=== PATIENT | female | born 1945 | race Caucasian/White ===

== ENCOUNTER 2018-02-11 09:32 | Day surgery (SDC) | payer MEDICARE ==
[~2018-02-11 09:32] MED LIST: Acetaminophen TAB* 325 MG PO PRN; Buffered Lidocaine 0.9% SYRIN* 5 ML/SYR SYRINGE INTRADERM ONE
[2018-02-11] MEDS ORDERED: Tropicamide 1% OPTH.SOL* BTL ONE (11:08)
[2018-02-11] MEDS ORDERED: Lidocaine 1%* 5 ML VIAL ONE (11:08)
[2018-02-11] MEDS ORDERED: Neomycin/Polymy/Dex OPHTH.OIN* 3.5 GM ONE (11:08)
[2018-02-11] MEDS ORDERED: Cyclopentolate 1% OPTH.SOL* 2 ML BTL ONE (11:08)
[2018-02-11] MEDS ORDERED: Phenylephrine 2.5% OPTH.SOL* 2 ML BTL ONE (11:08)
[2018-02-11] MEDS ORDERED: Ketorolac 0.5% OPHTH (NF) 0.5 % 5 ML BTL ONE (11:08)
[2018-02-11] MEDS ORDERED: Tetracaine 0.5% OPTH.SOL 4 ML* 1 DROP BTL ONE (11:08)
[2018-02-11] MEDS ORDERED: fentaNYL* 50 MCG/ML 2 ML VIAL (100 MCG VIAL) ONE (11:22)
[2018-02-11] MEDS ORDERED: Midazolam* 1 MG/ML 2 ML VIAL (2 MG) ONE (11:22)
[2018-02-11 13:36] VITALS: BP 119/55
--- NOTE | 2018-02-12 02:25 | OP ---
DATE OF OPERATION: 02/11/18 - [facility] DATE OF : 41 SURGEON: Herbert Aguilar MD SHINGLES ROOFER HELPER: None. ANESTHESIA: Topical with intravenous sedation. PRE-OP DIAGNOSIS: Cataract with the stigmatism, left eye. POST-OP DIAGNOSIS: Cataract with the stigmatism, left eye. OPERATIVE PROCEDURE: Phacoemulsification and cataract extraction with posterior chamber toric intraocular lens implant, left eye. COMPLICATIONS: None. ESTIMATED BLOOD LOSS: None. DESCRIPTION OF PROCEDURE: The patient was seen preoperatively in the holding area, where she was placed in an upright position. A lena was then made at the 6 o'clock position at the limbus of the left eye. The patient was subsequently brought to the operating room and received intravenous sedation. A drop of tetracaine was placed in her left eye. A speculum was placed in the left eye after the patient was prepped and draped in the usual sterile fashion for ophthalmic surgery. A paracentesis was then created at the 4 o'clock position of the left eye. Approximately 0.1 cc of 1% preservative-free lidocaine was injected into the anterior chamber followed by DisCoVisc. The eye was digitally stabilized where a 2.75 mm keratome was used to create a triplanar clear corneal incision at the 3 o'clock position. A continuous curvilinear capsulorrhexis was created with cystotome and Utrata forceps. BSS on a cannula was used to hydrodissect the lens from the capsule. Phacoemulsification was performed in a divide and conquer technique to create four fragments, which were removed. Residual cortical material was removed with irrigation and aspiration. Healon was used to inflate the capsular bag. A Wilkes marker was used to lena the 100-degree axis. An SN6AT5 26.0 diopter lens was folded and inserted into the capsular bag. Sinskey hook was used to dial lens to appropriate axial alignment. The Sinskey hook remained in the eye through the paracentesis while irrigation and aspiration was performed to remove viscoelastic from the eye. The Sinskey hook was removed. BSS on a cannula was used to hydrate the corneal stroma and seal the wound. At the end of the case, the pupil was round. The lens was centered, stable, and axially aligned. The eye pressure appeared normal. The wound was watertight. The speculum was removed and topical Maxitrol ointment was placed on the surface of the eye. The eye was closed, patched, and shielded and the patient was sent to recovery room in stable condition with postoperative instructions and followup appointment given. [id number]/CPS #: [id number] MTDD
== END 2018-02-11 12:49 | disposition home or self-care (01) ==
LOC: OREAST 09:32
PROVIDERS: ATTEND Ophthalmology
DX: H25.12 Age-related nuclear cataract, left eye (principal); H52.202 Unspecified astigmatism, left eye; I25.119 Atherosclerotic heart disease of native coronary artery with unspecified angina pectoris; Z95.1 Presence of aortocoronary bypass graft; I49.3 Ventricular premature depolarization; Z85.118 Personal history of other malignant neoplasm of bronchus and lung; M19.90 Unspecified osteoarthritis, unspecified site; J30.89 Other allergic rhinitis
CPT/HCPCS: A9270-GY; J2250; J3010; V2787

== ENCOUNTER 2018-02-18 07:28 | Day surgery (SDC) | payer MEDICARE ==
[2018-02-18] MEDS ORDERED: Neomycin/Polymy/Dex OPHTH.OIN* 3.5 GM ONE (07:53)
[2018-02-18] MEDS ORDERED: Ketorolac 0.5% OPHTH (NF) 0.5 % 5 ML BTL ONE (07:53)
[2018-02-18] MEDS ORDERED: Lidocaine 1%* 5 ML VIAL ONE (07:53)
[2018-02-18] MEDS ORDERED: Cyclopentolate 1% OPTH.SOL* 2 ML BTL ONE (07:53)
[2018-02-18] MEDS ORDERED: Tropicamide 1% OPTH.SOL* BTL ONE (07:53)
[2018-02-18] MEDS ORDERED: Tetracaine 0.5% OPTH.SOL 4 ML* 1 DROP BTL ONE (07:53)
[2018-02-18] MEDS ORDERED: Phenylephrine 2.5% OPTH.SOL* 2 ML BTL ONE (07:53)
[2018-02-18] MEDS ORDERED: Midazolam* 1 MG/ML 5 ML VIAL (5 MG) ONE (09:02)
[2018-02-18] MEDS ORDERED: fentaNYL* 50 MCG/ML 2 ML VIAL (100 MCG VIAL) ONE (09:02)
[2018-02-18 10:25] VITALS: BP 100/63
--- NOTE | 2018-02-19 00:49 | OP ---
DATE OF OPERATION: 02/18/18 - [facility] DATE OF : 41 SURGEON: Herbert Aguilar MD GEODUCK DIVER: None. ANESTHESIA: Topical with intravenous sedation. PRE-OP DIAGNOSIS: Cataract with astigmatism, right eye. POST-OP DIAGNOSIS: Cataract with astigmatism, right eye. OPERATIVE PROCEDURE: Phacoemulsification, cataract extraction with posterior chamber Toric intraocular lens implant, right eye. COMPLICATIONS: None. BLOOD LOSS: None. DESCRIPTION OF PROCEDURE: The patient was seen preoperatively in the holding area where she was placed in an upright position. A lena was made at the 6 o' clock position of the limbus of the right eye with a marking pen. The patient was subsequently brought into the operating room and received a small amount of intravenous sedation. A drop of Tetracaine was placed in her right eye. She was prepped and draped in the usual sterile fashion for ophthalmic surgery and attention was directed to the right eye where a speculum was placed. A paracentesis was created at the 11 o'clock position and 0.1 cc of 1% preservative free lidocaine was injected into the anterior chamber followed by DisCoVisc. The eye was digitally stabilized where a 2.75 mm keratome was used to create a triplanar clear corneal incision at the 9 o'clock position. A continuous curvilinear capsulorrhexis was created with a cystotome and Utrata forceps. BSS on a cannula was used to hydrodissect the lens from the capsule. Phacoemulsification was performed in a [id number]-[id number] technique to create 4 fragments which were removed. Residual cortical material was removed with irrigation and aspiration. Healon was used to inflate the capsular bag. A Wilkes marker was used to lena the 83 degree axis in the limbus. An SN6AT3 of 24 diopter lens was folded and inserted into the capsular bag. The lens was dialed to the appropriate axial alignment with the Sinskey hook. The Sinskey hook remained in the eye through the paracentesis to stabilize the lens while irrigation and aspiration were performed to remove viscoelastic from the eye. BSS on a cannula was used to hydrate the corneal stroma and seal the wound. At the end of the case, the pupil was round and the lens was centered. The lens was stable at its appropriate axis. The eye pressure appeared normal and the wound was watertight. The speculum was removed and topical Maxitrol ointment was placed on the surface of the eye. The eye was closed, patched, and shielded , and the patient was sent to recovery room in stable condition with postop instructions and follow- up appointment given. [id number] #: [id number] MTDD
== END 2018-02-18 10:27 | disposition home or self-care (01) ==
LOC: OREAST 07:28
PROVIDERS: ATTEND Ophthalmology
DX: H25.11 Age-related nuclear cataract, right eye (principal); H52.201 Unspecified astigmatism, right eye; I25.10 Atherosclerotic heart disease of native coronary artery without angina pectoris; Z95.1 Presence of aortocoronary bypass graft; Z85.118 Personal history of other malignant neoplasm of bronchus and lung; M19.90 Unspecified osteoarthritis, unspecified site; M48.00 Spinal stenosis, site unspecified
CPT/HCPCS: A9270-GY; J2250; J3010; V2787

== ENCOUNTER 2018-11-17 18:20 | Emergency (ER) | payer MEDICARE ==
--- OUTSIDE RECORDS SUMMARY | 2018-11-17 18:26 | XMS REPORT | Continuity of Care Document ---
:1945 External Reference #:[id number] Author Name Jenna Jayde Care Team Providers Name Role Phone Igor Bear MD Primary Care Physician Unavailable Payers Date Identification Numbers Payment Provider Subscriber Effective: 2016 Policy Number: [id number] [employer] Kanwal Hernandez PayID: [id number] [address] [place] [address] Effective: 2013 Policy Number: [id number] Medicare Kanwal Hernandez Expires: 2016 PayID: [id number] [address] [place] [address] Expires: 2016 Policy Number: [id number] [employer] Number: [id number] [address] PayID: [id number] [place] [address] Advance Directives Description No Information Available Problems Date Description Provider Status Onset: 11/27/2017 Localized, primary osteoarthritis Sonya Menard M.D. Active Family History Date Family Member(s) Observation Comments General Heart Disease General Cancer Father due to Cancer () Mother due to Heart Disease () Siblings 1 Siblings 1 Social History Type Date Description Comments Sex Unknown Marital Status Lives With Spouse Occupation Retired ETOH Use Denies alcohol use Tobacco Use Start: Unknown End: Patient is a former Unknown smoker Recreational Drug Use Denies Drug Use Tobacco Use Start: Unknown End: Patient is a former quit 2014 2 ppd Unknown smoker for most of her adult years. Smoking Status Reviewed: 10/24/18 Patient is a former quit 2014 2 ppd smoker for most of her adult years. Exercise Type/Frequency Exercises sporadically Allergies, Adverse Reactions, Alerts Date Description Reaction Status Severity Comments 08/04/2013 Darvon Active 08/04/2013 Tape Adhesive Active 08/18/2014 Vicryl Sutures Active Medications Medication Date Status Form Strength Qnty SIG Indications Ordering Provider Cymbalta 0000/ Active Tablet 60mg 1 tab by Unknown 0000 mouth daily Aspir-81 / Active Tablets DR 81mg 30tab 1 by mouth Unknown 0000 s every day Calcium Citrate / Active Tablet 500mg 1 tab by Unknown + 0000 mouth daily Acidophilus / Active 1 po qd Unknown 0000 Echinacea / Active 1 po qd prn Unknown 0000 Melatonin / Active Tablet 1mg 1 tab by Unknown 0000 mouth at hs as needed Gilotrif / Active 40mg 1 po qd Unknown 0000 Methocarbamol / Active Tablet 750mg 1 tab by Unknown 0000 mouth daily Anusol-HC / Active Cream 2.5% topical Unknown 0000 twice a day as needed for hemorrhoids Biotin / Active Capsules 5000mcg 1 by mouth Unknown 0000 daily Clindamycin / Active Gel apply prn to Unknown Phosphate 0000 affected areas. Triamcinolone / Active apply to Unknown Acetonide 0000 affected areas prn Cranberry / Active Tablets 500mg 1 by mouth Unknown 0000 every day Vitamin B12 / Active Tablets 500mcg 1 by mouth Unknown 0000 every day Vit D 3 / Active Chewtabs 1000Unit 1 po qd Unknown 0000 Tylenol / Active Tablets 325mg 2 tabs by Unknown 0000 mouth every 4 hours as needed Eelecampagne 08/18/ Hx Evelin Soto-Juvenal 04/21/ Bettye smith 2018 Naprosyn 02/12/ Hx Tablets 375mg 60tab 1 po bid prn [place] 2012 Christina Bush 08/17/ Bettye 2015 Co Q 10 / Hx Unknown 2017 Evening / Hx Unknown [place] Oil 2017 [place] Zhou / Hx Unknown 2017 Magnesium // Hx Unknown Citrate 2017 Multi / Hx Unknown Vitamin/Mineral 0000 - s 2017 Potassium // Hx Unknown 2017 Selenium ER / Hx Unknown 2017 Turmeric / Hx Unknown 2017 Vitamin B 12 / Hx Unknown 2017 Vitamin C / Hx Unknown 2017 Vitamin D3 / Hx Capsule 1000Units 2 caps by Unknown 0000 - mouth daily 2017 Vitamin E / Hx Unknown Complex 2017 Respiration / Hx Unknown Support And 0000 - Defense 2017 Medications Administered in Office Medication Date Status Form Strength Qnty SIG Indications Ordering Provider Hyaluron Or Administered Injection Sonya Derivative,Ort Bettye West,For Intra-Articula r Inj Per Dose Depomedrol Administered Injection Sonya 40MG Johnny Menard M.D. Hyaluron Or Administered Injection Sonya Derivative,Ort Bettye West,For Intra-Articula r Inj Per Dose Hyaluron Or Administered Injection Sonya Derivative,Bettye Sanchez,For Intra-Articula r Inj Per Dose Hyaluron Or Administered Injection Sonya Derivative,Bettye Latif,For Intra-Articula r Inj Per Dose Hyaluron Or Administered Injection Sonya Derivative,Bettye Latif,For Intra-Articula r Inj Per Dose Hyaluron Or Administered Injection Sonya Derivative,Bettye Latif,For Intra-Articula r Inj Per Dose Depomedrol Administered Injection Sonya 40MG Javier Menard M.D. Immunizations Description No Information Available Vital Signs Date Vital Result Comment 10/24/2018 1:33pm Height 62 inches 5'2" Weight 145.00 lb no shoes Heart Rate 88 /min BP Systolic Sitting 120 mmHg sitting ule BP Diastolic Sitting 72 mmHg sitting ule BMI (Body Mass Index) 26.5 kg/m2 Ejection Fraction 55-60% echo 05/12/18 09/08/2018 2:42pm Height 62 inches 5'2" Weight 145.00 lb Heart Rate 70 /min BP Systolic Sitting 122 mmHg BP Diastolic Sitting 72 mmHg Pain Level 4 BMI (Body Mass Index) 26.5 kg/m2 09/01/2018 2:38pm Height 62 inches 5'2" Heart Rate 60 /min BP Systolic 110 mmHg BP Diastolic 64 mmHg Body Temperature 98.9 F Pain Level 0 08/25/2018 2:37pm Height 62 inches 5'2" Heart Rate 63 /min BP Systolic 128 mmHg BP Diastolic 86 mmHg Respiratory Rate 18 /min Body Temperature 97.8 F Pain Level 5 07/14/2018 2:30pm Height 62 inches 5'2" Weight 148.00 lb BP Systolic 108 mmHg BP Diastolic 60 mmHg Body Temperature 97.6 F BMI (Body Mass Index) 27.1 kg/m2 04/22/2018 9:36am Height 62 inches 5'2" Weight 146.00 lb reported Heart Rate 58 /min BP Systolic 142 mmHg left arm BP Diastolic 80 mmHg left arm BMI (Body Mass Index) 26.7 kg/m2 Ejection Fraction 55-60% 08/15/2016 Echocardiogram 02/03/2018 2:26pm Height 62 inches 5'2" Weight 144.00 lb Heart Rate 79 /min BP Systolic 113 mmHg BP Diastolic 67 mmHg Body Temperature 97.7 F BMI (Body Mass Index) 26.3 kg/m2 01/27/2018 2:25pm Height 62 inches 5'2" Weight 144.00 lb BP Systolic 122 mmHg BP Diastolic 76 mmHg Body Temperature 98.2 F Pain Level 4 BMI (Body Mass Index) 26.3 kg/m2 01/20/2018 2:29pm Height 62 inches 5'2" Weight 145.00 lb BP Systolic 120 mmHg BP Diastolic 76 mmHg Body Temperature 98.0 F Pain Level 6 BMI (Body Mass Index) 26.5 kg/m2 12/11/2017 10:57am Height 62 inches 5'2" Weight 147.00 lb BP Systolic 110 mmHg BP Diastolic 60 mmHg Body Temperature 98.2 F Pain Level 6 BMI (Body Mass Index) 26.9 kg/m2 11/27/2017 11:19am Height 62.5 inches 5'2.50" Weight 148.00 lb Heart Rate 61 /min BP Systolic 124 mmHg BP Diastolic 78 mmHg Respiratory Rate 18 /min Body Temperature 98.1 F Pain Level 9 BMI (Body Mass Index) 26.6 kg/m2 08/18/2014 9:48am Height 62.5 inches 5'2.50" Weight 136.00 lb Heart Rate 72 /min BP Systolic 108 mmHg BP Diastolic 69 mmHg BMI (Body Mass Index) 24.5 kg/m2 Results Description No Information Available Procedures Date Code Description Status 10/24/2018 46118 EKG Tracing & Interpretation Completed 09/08/201892453 Inject/Drain Joint/Bursa Major W/O US Completed 09/01/2018 47427 Inject/Drain Joint/Bursa Major W/O US Completed 08/25/2018 53768 Inject/Drain Joint/Bursa Major W/O US Completed 05/12/2018 45396 ECHO Transthoracic, Real-Time 2D With Doppler And Color Completed Flow 05/12/2018 37272 ECHO Transthoracic, Real-Time 2D With Doppler And Color Completed Flow 04/22/2018 28734 EKG Tracing & Interpretation Completed 04/16/2018 47564 Holter Monitor Review (24 hr)dr review & interp only Completed 04/15/2018 74808 ECG Monitor/Recording W/Visual Superimposition Scanning Completed 02/03/201868764 Inject/Drain Joint/Bursa Major W/O US Completed 01/27/2018 39279 Inject/Drain Joint/Bursa Major W/O US Completed 01/20/2018 21858 Inject/Drain Joint/Bursa Major W/O US Completed 11/27/2017 62032 Inject/Drain Joint/Bursa Major W/O US Completed 08/15/2016 15959 ECHO Transthorasic Realtime 2D W Doppler & Color Flow Hosp Completed 02/12/2013 79784 Xray Knee 3 Views Completed 02/12/2013 88266 Rad Exam; Knee, Ap&L Completed Encounters Type Date Location Provider Dx Diagnosis Office Visit 07/14/2018 Orthopedic Sonya Menard, M25.562 Pain in left knee 2:15p [facility] M25.462 Effusion, left knee M17.12 Unilateral primary osteoarthritis, left knee Office Visit 04/22/2018 Selena Choe I44.1 Atrioventricular 9:40a Cardiology Bettye Amador block, second degree 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 knee M21.062 Valgus deformity, not elsewhere classified, left knee M25.561 Pain in right knee M25.562 Pain in left knee M25.461 Effusion, right knee M25.462 Effusion, left knee Office Visit 11/27/2017 11:00a Orthopedic Sonya M17.0 Bilateral primary [facility] Bettye Menard osteoarthritis of C[place]. knee M25.561 Pain in right knee M25.562 Pain in left knee M25.461 Effusion, right knee M25.462 Effusion, left knee Office 08/18/2014 Orthopedic Evelin 715.34 Osteoarthrosis Visit 9:30a [facility] Bettye Guzman Localzd Not Spec C.M.A. Prime Or 2Ndy Hand 727.03 Trigger Finger Acquired 354.0 Carpal Tunnel Syndrome 354.2 Lesion Ulnar Nerve 305.1 Tobacco Use Disorder Office Visit 05/27/2013 1:45p Orthopedic [place] 726.61 Bursitis [facility] Bettye Tendinijorgito Pacheco CBassamMEvelia Traylor Office Visit 02/12/2013 1:00p Orthopedic [place] 726.61 Bursitis [facility] Bettye Tendinitis Pes CBassamMBassamABassam Anschristine Plan of Treatment Future Appointment(s):12/11/2018 2:00 pm - Safia Tariq MD at [facility]12/24/2018 2:00 pm - Igor Ferraro M.D. at [facility]10/24/2018 - Mars Amador M.D.I44.1 Atrioventricular block, second degreeFollow up:ov 10 mI25.10 Atherosclerotic heart disease of [place] coronary artery withI49.1 Atrial premature depolarizationRecommendations:consider Magnesium taurate 125-250 mg cauukF02.00 Pure hypercholesterolemia, unspecifiedRecommendations:consider Zetia or a PCSK9 inhibitor (eg. Repatha )
[2018-11-17 18:35] VITALS: BP 110/70
--- NOTE | 2018-11-17 18:50 | UC ---
Hip/Pelvis Pain - HPI Summary HPI Summary: Patient presents to urgent care for evaluation of her left hip. Patient states Saturday night and morning she got up to use the restroom. Patient states she misstepped a short step and fell landing on her left buttock. Patient states she did not get out of bed or Saturday. Patient states she was able to get up on Saturday ankle dinner. Patient also cup and symmetrical dinner. Patient's currently taking oxycodone twice a day for probably arthritis. Patient also taking Tylenol 2-3 times a day. Patient states she has some ongoing discomfort in her left upper buttock area with walking and concerned that maybe she broke her hip. Patient unable to get into her primary today. Patient states she is also followed by but did not call her today. Patient is not on any anticoagulation. Patient has of ecchymosis left lateral possible leg. Patient denies any paresthesias. No muscle weakness. No change to bowel or bladder. No hematuria. Patient medications reviewed this visit. - History Of Current Complaint Chief Complaint: UCLowerExtremity Stated Complaint: HIP COMPLAINT Time Seen by Provider: 11/17/18 18:46 Hx Obtained From: Patient ?: No Pain Intensity: 9 - Allergies/Home Medications Allergies/Adverse Reactions: Allergies Allergy/AdvReac Type Severity Reaction Status Date / Time propoxyphene Allergy Severe Nausea And Verified 11/17/18 18:35 Vomiting latex Allergy Intermediate Rash Verified 11/17/18 18:35 VICRYL SUTURES Allergy Intermediate DIDN'T Uncoded 11/17/18 18:35 DISSOLVE PMH/Surg Hx/FS Hx/Imm Hx Previously Healthy: Yes - poly arthritis, scoliosis - Surgical History Surgical History: Yes Surgery Procedure, Year, and Place: CABG- 1980. hysterectomy 1995, R knee meniscus repair 2010. CATARACTS - Family History Known Family History: Positive: Non-Contributory - Social History Occupation: Retired Lives: With Family Alcohol Use: None Substance Use Type: None Smoking Status (MU): Former Smoker Amount Used/How Often: SMOKED OFF AND ON 30 TREVOR YEARS When Did the Patient Quit Smoking/Using Tobacco: 2014 Review of Systems All Other Systems Reviewed And Are Negative: Yes Constitutional: Positive: Negative Skin: Positive: Bruising Eyes: Positive: Negative ENT: Positive: Negative Musculoskeletal: Positive: Other: - left buttock, hip pain Physical Exam - Summary Physical Exam Summary: Vital Signs Reviewed: Yes A+Ox3, no distress, ambulatory with cane - baseline per pt Eyes: Conjunctiva Clear ENT: Hearing grossly normal Neck: Positive: Supple Respiratory: Positive: No respiratory distress, No accessory muscle use Cardiovascular: 2+ PT, femoral Musculoskeletal Exam: No pain spinous process c/t/l/s Pt with pain left superior margin left gluteus, + SLE + internal and external + flex/ext knee, ankle Neurological: Positive: Alert, + gross sensation trhoughout LE 2+ patellar without clonus Psychological: Positive: Normal Response To Family Skin: Positive: no rash, + large 5x5cm progressing ecchymosis left lateral prox femur. + mild TTP "skin" per pt Triage Information Reviewed: Yes Vital Signs: Initial Vital Signs Temp 97.7 F 11/17/18 18:32 Pulse 62 11/17/18 18:32 Resp 18 11/17/18 18:32 BP 110/70 11/17/18 18:32 Pulse Ox 96 11/17/18 18:32 Diagnostics - Radiology No standard instances Radiology Interpretation Completed By: ED Physician - no fracture Re-Evaluation - Re-Evaluation First Eval Comment: reivewed imaging with pt. arthritis, no fx. Pt aware wet read. recommend heat, stretch. f.u with pcp. continue with meds for pain. strict return precautions. ot aware prelim radiology Hip Injury Course/Dx - Course Course Of Treatment: Patient presents to urgent care for evaluation of her left hip. Patient states she had a mechanical fall Saturday and morning. Patient with ongoing pain in her left hip and upper buttock on the left. Patient without paresthesias. Patient takes chronic pain medication as continue to take this. Patient states she's concerned she may have broken her hip and wanted x-ray. Patient without any paresthesias. Distal CSM intact. Patient does have sizable ecchymosis on the left lateral proximal femur. No crepitus. Patient with good range of motion of the hip. Suspect this is mostly soft tissue given point tenderness is over the gluteus ai however we will check imaging. Patient aware will be pulmonary retype formally to follow. Patient isn't physical therapy for her Poly-arthritis. Recommend patient go to physical therapy on Saturday as scheduled. Recommended heat and stretch. Continue with pain medication follow primary care provider patient comfortable and agreement with plan. - Differential Dx/Diagnosis Provider Diagnosis: Contusion, hip Discharge - Sign-Out/Discharge Documenting (check all that apply): Patient Departure All imaging exams completed and their final reports reviewed: No - Discharge Plan Condition: Stable Disposition: HOME Patient Education Materials: Hip Pain (ED), Hematoma (ED), Hip Contusion (ED) Referrals: Igor Bear MD [Primary Care Provider] - Additional Instructions: - Continue to use cane for balance with walking -continue to take your medications as previously prescribed for pain - Apply heat to your injured area - once warm, slow gentle stretching exercises - the bruising may continue to extend toward your knee - this is normal - Follow up with your primary care provider this week - If your pain is uncontrolled, you develop weakness, new numbness or ANY Other concerns it is recommended you go to the emergency department for further evaluation As discussed, your radiograph was reviewed by the provider that treated you tonight. It will be read by a radiologist tomorrow morning. If there is a finding other than that discussed with you today, you will receive a call from a care provider. - Billing Disposition and Condition Condition: STABLE Disposition: Home
--- NOTE | 2018-11-19 15:54 | UC ---
- Progress Note Progress Note: Radiology report reviewed. No evidence for fracture. No change in management. Course/Dx - Diagnoses Provider Diagnoses: Contusion, hip Discharge - Sign-Out/Discharge Documenting (check all that apply): Post-Discharge Follow Up All imaging exams completed and their final reports reviewed: Yes - Discharge Plan Condition: Stable Disposition: HOME Patient Education Materials: Hip Pain (ED), Hematoma (ED), Hip Contusion (ED) Referrals: Igor Bear MD [Primary Care Provider] - Additional Instructions: - Continue to use cane for balance with walking -continue to take your medications as previously prescribed for pain - Apply heat to your injured area - once warm, slow gentle stretching exercises - the bruising may continue to extend toward your knee - this is normal - Follow up with your primary care provider this week - If your pain is uncontrolled, you develop weakness, new numbness or ANY Other concerns it is recommended you go to the emergency department for further evaluation As discussed, your radiograph was reviewed by the provider that treated you tonight. It will be read by a radiologist tomorrow morning. If there is a finding other than that discussed with you today, you will receive a call from a care provider. - Billing Disposition and Condition Condition: STABLE Disposition: Home
== END 2018-11-17 19:55 | disposition home or self-care (01) ==
LOC: UCEAST 18:20
DX: S70.02XA Contusion of left hip, initial encounter (principal); W19.XXXA Unspecified fall, initial encounter; Y92.009 Unspecified place in unspecified non-institutional (private) residence as the place of occurrence of the external cause; M13.0 Polyarthritis, unspecified; M41.9 Scoliosis, unspecified; Z95.1 Presence of aortocoronary bypass graft; Z91.040 Latex allergy status; Z88.5 Allergy status to narcotic agent; Z91.048 Other nonmedicinal substance allergy status; Z87.891 Personal history of nicotine dependence
CPT/HCPCS: 99211; G0463

== ENCOUNTER 2022-07-23 10:05 | Inpatient (IN) ==
[2022-07-23] MEDS ORDERED: NS 0.9% 1000 ml BAG 1,000 ML IV ONE (10:40)
[2022-07-23 12:01] LABS: ABS Lymphocytes 0.2 10^3/ul (1.0-4.8); ABS Monocytes 0.5 10^3/ul (0-0.8); ABS Neutrophils 4.1 10^3/ul (1.5-7.7); Hematocrit 38 % (35-47); Hemoglobin 12.7 g/dL (12.0-16.0); Lymphocyte % 3.1 %; Mean Corpuscular HGB Conc 33 g/dL (31-36); Mean Corpuscular Hemoglobin 31 pg (27-31); Mean Corpuscular Volume 92 fL (80-97); Mean Platelet Volume 7.2 fL (7.4-10.4); Nucleated Red Blood Cells % 0.1; Platelet Count 132 10^3/uL (150-450); Red Cell Distribution Width 14 % (10-15); White Blood Count 4.8 10^3/uL (3.5-10.8)
[2022-07-23 12:20] LABS: High Sens Troponin Baseline 149 pg/mL (<15)
[2022-07-23] MEDS ORDERED: Haloperidol 5 mg/ml SDV IV/IM 5 MG/ML AMP ONE (12:30)
[2022-07-23] MEDS ORDERED: Haloperidol 5 mg/ml SDV IV/IM 5 MG/ML AMP IV SLOW PU ONE (12:42)
[2022-07-23 12:51] LABS: ALT 13 U/L (7-52); AST 23 U/L (13-39); Albumin 4.2 g/dL (3.2-5.2); Albumin/Globulin Ratio 2.2 (1-3); Alcohol, S < 13 mg/dL (<13); Alkaline Phosphatase 60 U/L (35-149); Anion Gap 8 mmol/L (2-11); Blood Urea Nitrogen 15 mg/dL (6-24); CO2 Carbon Dioxide 23 mmol/L (22-32); Chloride 95 mmol/L (101-111); Globulin 1.9 g/dL (2-4); Glucose 97 mg/dL (70-100); Magnesium 1.7 mg/dL (1.9-2.7); Sodium 126 mmol/L (135-145); Total Protein 6.1 g/dL (6.4-8.9); eGFR CKD-EPI 95.9 (>60)
[2022-07-23 13:05] LABS: TSH Ultra Thyroid Stim Horm 0.99 mcIU/mL (0.34-5.60)
[2022-07-23 13:32] LABS: High Sensitivity Troponin 1 Hr 157 pg/mL (<15)
[2022-07-23] MEDS ORDERED: LORazepam 2 mg VIAL 1 ml IV PUSH ONE (14:04)
[2022-07-23] MEDS ORDERED: Lorazepam PYXIS KEY PRN (14:04)
[2022-07-23] MEDS ORDERED: Magnesium Sulfate IV 3 GM in NS 0.9% 100 ml BAG 100 ML IVPB ONE (14:35)
[2022-07-23 16:46] LABS: Anion Gap 5 mmol/L (2-11); Blood Urea Nitrogen 13 mg/dL (6-24); CO2 Carbon Dioxide 23 mmol/L (22-32); Calcium 8.2 mg/dL (8.6-10.3); Chloride 96 mmol/L (101-111); Glucose 90 mg/dL (70-100); Sodium 124 mmol/L (135-145); eGFR CKD-EPI 97.4 (>60)
[2022-07-23 17:46] LABS: Urine Appearance Clear; Urine Bilirubin Negative (Negative); Urine Color Yellow; Urine Glucose Negative (Negative); Urine Ketones 3+ (80mg/dL) (Negative)
[2022-07-23 17:49] LABS: Urine Bacteria Absent (Absent); Urine Red Blood Cell 1+(3-5/hpf) (Absent); Urine White Blood Cell Trace(0-5/hpf) (Absent)
[2022-07-23 17:50] LABS: Urine Blood 1+ (Small) (Negative); Urine Nitrite Negative (Negative); Urine Protein 1+ (30 mg/dL) (Negative); Urine Specific Gravity 1.014 (1.002-1.030); Urine Urobilinogen 0.2 (Negative) (Negative); Urine pH 5.5 (5.0-9.0)
[2022-07-23] MEDS: Enoxaparin 40 MG/0.4 ML SYR SUBCUT SCH (18:04)
[2022-07-23] MEDS ORDERED: Magnesium Hydroxide LIQ 30 ML UDC PO PRN (18:32)
[2022-07-23 20:03] LABS: Osmolality Serum 264 mOsm/kg (275-295)
[2022-07-23 20:03] LABS: Urine Osmo 526 mOsm/kg (150-1150)
[2022-07-23] MEDS ORDERED: oxyCODONE SR 20 mg TAB PO SCH (22:00)
[2022-07-23] MEDS: Senna TAB 8.6 mg TAB PO SCH (23:32)
[2022-07-24] MEDS: Silver Sulfadiazine 1% 20 gm TUBE TOPICAL SCH ×2 (00:41→08:10)
[2022-07-24] MEDS: Senna TAB 8.6 mg TAB PO SCH ×3 (00:42→23:47)
[2022-07-24 04:24] LABS: Blood Urea Nitrogen 13 mg/dL (6-24); CO2 Carbon Dioxide 24 mmol/L (22-32); Calcium 9.2 mg/dL (8.6-10.3); Chloride 90 mmol/L (101-111); Glucose 103 mg/dL (70-100); Sodium 124 mmol/L (135-145); eGFR CKD-EPI 97.4 (>60)
[2022-07-24 04:30] LABS: Anion Gap 10 mmol/L (2-11)
[2022-07-24] MEDS: Aspirin EC 81 mg TAB.EC (enteric coated) PO SCH (08:08)
[2022-07-24] MEDS: oxyCODONE SR 20 mg TAB PO SCH ×2 (08:08→23:46)
[2022-07-24] MEDS: Cholecalciferol (VIT D3) 1,000 unit TAB PO SCH (08:09)
[2022-07-24] MEDS ORDERED: PTO: OSIMERTINIB MESYLATE 80 MG TABLET (NF) PO SCH (09:00)
[2022-07-24] MEDS ORDERED: OSIMERTINIB MESYLATE 80 MG PO SCH (09:00)
[2022-07-24] MEDS: OSIMERTINIB PO SCH (11:56)
[2022-07-24] MEDS ORDERED: guaiFENesin 100 mg/5 ml LIQ unit dose cup PO PRN (15:07)
[2022-07-24] MEDS: Benzocaine/Menthol LOZ PO PRN (15:18)
[2022-07-24] MEDS: Enoxaparin 40 MG/0.4 ML SYR SUBCUT SCH (19:11)
[2022-07-25] MEDS: Silver Sulfadiazine 1% 20 gm TUBE TOPICAL SCH ×3 (03:00→20:06)
[2022-07-25 08:46] LABS: ABS Lymphocytes 0.4 10^3/ul (1.0-4.8); ABS Monocytes 0.5 10^3/ul (0-0.8); Hematocrit 39 % (35-47); Hemoglobin 13.3 g/dL (12.0-16.0); Lymphocyte % 7.8 %; Mean Corpuscular HGB Conc 34 g/dL (31-36); Mean Corpuscular Hemoglobin 31 pg (27-31); Mean Corpuscular Volume 91 fL (80-97); Mean Platelet Volume 7.2 fL (7.4-10.4); Nucleated Red Blood Cells % 0.1; Platelet Count 117 10^3/uL (150-450); Red Blood Count 4.32 10^6 /uL (3.70-4.87); Red Cell Distribution Width 14 % (10-15); White Blood Count 4.9 10^3/uL (3.5-10.8)
[2022-07-25] MEDS: Aspirin EC 81 mg TAB.EC (enteric coated) PO SCH (08:52)
[2022-07-25] MEDS: Cholecalciferol (VIT D3) 1,000 unit TAB PO SCH (08:52)
[2022-07-25] MEDS: OSIMERTINIB PO SCH (08:53)
[2022-07-25] MEDS: oxyCODONE SR 20 mg TAB PO SCH ×2 (08:53→19:59)
[2022-07-25 09:18] LABS: Calcium 8.9 mg/dL (8.6-10.3); Potassium 3.8 mmol/L (3.5-5.0); eGFR CKD-EPI 97.4 (>60)
[2022-07-25] MEDS ORDERED: NS 0.9% 1000 ml BAG 1,000 ML IV SCH (16:00)
[2022-07-25] MEDS: Enoxaparin 40 MG/0.4 ML SYR SUBCUT SCH (16:54)
[2022-07-25] MEDS: Senna TAB 8.6 mg TAB PO SCH (20:00)
[2022-07-26 06:31] LABS: ABS Lymphocytes 0.2 10^3/ul (1.0-4.8); ABS Monocytes 0.5 10^3/ul (0-0.8); ABS Neutrophils 4.9 10^3/ul (1.5-7.7); Hematocrit 39 % (35-47); Hemoglobin 13.3 g/dL (12.0-16.0); Lymphocyte % 3.5 %; Mean Corpuscular HGB Conc 34 g/dL (31-36); Mean Corpuscular Hemoglobin 31 pg (27-31); Mean Corpuscular Volume 92 fL (80-97); Mean Platelet Volume 7.3 fL (7.4-10.4); Nucleated Red Blood Cells % 0.1; Platelet Count 120 10^3/uL (150-450); Red Blood Count 4.28 10^6 /uL (3.70-4.87); Red Cell Distribution Width 14 % (10-15); White Blood Count 5.5 10^3/uL (3.5-10.8)
[2022-07-26 06:54] LABS: Calcium 8.6 mg/dL (8.6-10.3); eGFR CKD-EPI 100.6 (>60)
[2022-07-26 08:07] LABS: Magnesium 1.5 mg/dL (1.9-2.7)
[2022-07-26] MEDS: oxyCODONE SR 20 mg TAB PO SCH ×2 (08:10→21:48)
[2022-07-26] MEDS: Aspirin EC 81 mg TAB.EC (enteric coated) PO SCH (08:10)
[2022-07-26] MEDS: Cholecalciferol (VIT D3) 1,000 unit TAB PO SCH (08:10)
[2022-07-26] MEDS: OSIMERTINIB PO SCH (08:12)
[2022-07-26] MEDS: Silver Sulfadiazine 1% 20 gm TUBE TOPICAL SCH ×2 (08:13→21:50)
[2022-07-26] MEDS: KCL 20 MEQ/100 ML IVPREMIX 20 MEQ/100 ML BAG IV SCH ×2 (08:27→10:53)
[2022-07-26] MEDS ORDERED: Magnesium Sulf 4 GM/100 ML IV 4,000 MG/100 ML BAG IVPB ONE (08:28)
[2022-07-26] MEDS ORDERED: Potassium Chlor 20 meq TAB.ER PO ONE ×2 (11:17→17:00)
[2022-07-26] MEDS: Benzocaine/Menthol LOZ PO PRN (11:43)
[2022-07-26] MEDS: Enoxaparin 40 MG/0.4 ML SYR SUBCUT SCH (16:26)
[2022-07-26] MEDS: Senna TAB 8.6 mg TAB PO SCH (21:47)
[2022-07-27 08:16] LABS: ABS Lymphocytes 0.4 10^3/ul (1.0-4.8); ABS Monocytes 0.4 10^3/ul (0-0.8); ABS Neutrophils 3.6 10^3/ul (1.5-7.7); Hematocrit 36 % (35-47); Hemoglobin 11.9 g/dL (12.0-16.0); Lymphocyte % 8.9 %; Mean Corpuscular HGB Conc 33 g/dL (31-36); Mean Corpuscular Hemoglobin 30 pg (27-31); Mean Corpuscular Volume 91 fL (80-97); Platelet Count 109 10^3/uL (150-450); Red Blood Count 3.95 10^6 /uL (3.70-4.87); Red Cell Distribution Width 15 % (10-15); White Blood Count 4.4 10^3/uL (3.5-10.8)
[2022-07-27 08:31] LABS: C Reactive Protein 136.45 mg/L (<8.01); Potassium 4.1 mmol/L (3.5-5.0); eGFR CKD-EPI 95.9 (>60)
[2022-07-27] MEDS: oxyCODONE SR 20 mg TAB PO SCH ×2 (08:40→20:05)
[2022-07-27] MEDS: Aspirin EC 81 mg TAB.EC (enteric coated) PO SCH (08:41)
[2022-07-27] MEDS: Cholecalciferol (VIT D3) 1,000 unit TAB PO SCH (08:41)
[2022-07-27] MEDS: OSIMERTINIB PO SCH (08:41)
[2022-07-27] MEDS: Silver Sulfadiazine 1% 20 gm TUBE TOPICAL SCH ×2 (08:58→22:31)
[2022-07-27] MEDS ORDERED: NS 0.9% 1000 ml BAG 1,000 ML IV SCH (11:00)
[2022-07-27] MEDS: Enoxaparin 40 MG/0.4 ML SYR SUBCUT SCH (17:12)
[2022-07-27] MEDS: Senna TAB 8.6 mg TAB PO SCH (20:05)
[2022-07-28 07:09] LABS: ABS Lymphocytes 0.5 10^3/ul (1.0-4.8); ABS Monocytes 0.5 10^3/ul (0-0.8); ABS Neutrophils 4.8 10^3/ul (1.5-7.7); Hematocrit 37 % (35-47); Hemoglobin 12.5 g/dL (12.0-16.0); Lymphocyte % 8.1 %; Mean Corpuscular HGB Conc 34 g/dL (31-36); Mean Corpuscular Hemoglobin 31 pg (27-31); Mean Corpuscular Volume 92 fL (80-97); Mean Platelet Volume 7.2 fL (7.4-10.4); Platelet Count 116 10^3/uL (150-450); Red Blood Count 4.02 10^6 /uL (3.70-4.87); Red Cell Distribution Width 14 % (10-15); White Blood Count 5.8 10^3/uL (3.5-10.8)
[2022-07-28 08:50] LABS: eGFR CKD-EPI 103.8 (>60)
[2022-07-28] MEDS: Aspirin EC 81 mg TAB.EC (enteric coated) PO SCH (09:44)
[2022-07-28] MEDS: Cholecalciferol (VIT D3) 1,000 unit TAB PO SCH (09:44)
[2022-07-28] MEDS: oxyCODONE SR 20 mg TAB PO SCH ×2 (09:45→21:21)
[2022-07-28] MEDS: OSIMERTINIB PO SCH (09:45)
[2022-07-28] MEDS: Silver Sulfadiazine 1% 20 gm TUBE TOPICAL SCH ×2 (09:46→21:23)
[2022-07-28] MEDS: Enoxaparin 40 MG/0.4 ML SYR SUBCUT SCH (17:09)
[2022-07-28] MEDS: NS 0.9% 1000 ml BAG 1,000 ML IV SCH (17:10)
[2022-07-28] MEDS ORDERED: oxyCODONE SR 20 mg TAB PO SCH (21:00)
[2022-07-28] MEDS: Senna TAB 8.6 mg TAB PO SCH (21:21)
[2022-07-29] MEDS: NS 0.9% 1000 ml BAG 1,000 ML IV SCH ×2 (03:02→13:11)
[2022-07-29 06:51] LABS: ABS Lymphocytes 0.7 10^3/ul (1.0-4.8); ABS Monocytes 0.7 10^3/ul (0-0.8); ABS Neutrophils 3.8 10^3/ul (1.5-7.7); Hematocrit 36 % (35-47); Hemoglobin 12.3 g/dL (12.0-16.0); Lymphocyte % 13.7 %; Mean Corpuscular HGB Conc 34 g/dL (31-36); Mean Corpuscular Hemoglobin 32 pg (27-31); Mean Corpuscular Volume 92 fL (80-97); Nucleated Red Blood Cells % 0.1; Platelet Count 129 10^3/uL (150-450); Red Blood Count 3.89 10^6 /uL (3.70-4.87); Red Cell Distribution Width 14 % (10-15); White Blood Count 5.3 10^3/uL (3.5-10.8)
[2022-07-29 07:10] LABS: Calcium 8.6 mg/dL (8.6-10.3); Potassium 3.9 mmol/L (3.5-5.0); eGFR CKD-EPI 107.7 (>60)
[2022-07-29] MEDS: OSIMERTINIB PO SCH (10:00)
[2022-07-29] MEDS: Aspirin EC 81 mg TAB.EC (enteric coated) PO SCH (10:00)
[2022-07-29] MEDS: Cholecalciferol (VIT D3) 1,000 unit TAB PO SCH (10:00)
[2022-07-29] MEDS: oxyCODONE SR 20 mg TAB PO SCH ×2 (10:01→20:26)
[2022-07-29] MEDS: Silver Sulfadiazine 1% 20 gm TUBE TOPICAL SCH ×2 (10:03→20:33)
[2022-07-29] MEDS: oxyCODONE SR 15 mg TAB PO SCH (14:28)
[2022-07-29] MEDS: Enoxaparin 40 MG/0.4 ML SYR SUBCUT SCH (17:28)
[2022-07-29] MEDS: Senna TAB 8.6 mg TAB PO SCH (20:25)
[2022-07-30] MEDS: NS 0.9% 1000 ml BAG 1,000 ML IV SCH ×2 (04:32→14:13)
[2022-07-30] MEDS: Cholecalciferol (VIT D3) 1,000 unit TAB PO SCH (09:40)
[2022-07-30] MEDS: Aspirin EC 81 mg TAB.EC (enteric coated) PO SCH (09:40)
[2022-07-30] MEDS: Silver Sulfadiazine 1% 20 gm TUBE TOPICAL SCH ×2 (09:41→20:24)
[2022-07-30] MEDS: oxyCODONE SR 20 mg TAB PO SCH ×2 (09:41→20:19)
[2022-07-30] MEDS: OSIMERTINIB PO SCH (10:56)
[2022-07-30] MEDS: oxyCODONE SR 15 mg TAB PO SCH (14:10)
[2022-07-30] MEDS: Enoxaparin 40 MG/0.4 ML SYR SUBCUT SCH (18:00)
[2022-07-30] MEDS: Senna TAB 8.6 mg TAB PO SCH (20:18)
[2022-07-31] MEDS: NS 0.9% 1000 ml BAG 1,000 ML IV SCH ×3 (00:35→21:55)
[2022-07-31 06:44] LABS: ABS Lymphocytes 0.7 10^3/ul (1.0-4.8); ABS Monocytes 0.7 10^3/ul (0-0.8); ABS Neutrophils 3.4 10^3/ul (1.5-7.7); Eosinophil % 0.7 %; Hematocrit 34 % (35-47); Hemoglobin 11.3 g/dL (12.0-16.0); Lymphocyte % 13.7 %; Mean Corpuscular HGB Conc 34 g/dL (31-36); Mean Corpuscular Hemoglobin 31 pg (27-31); Mean Corpuscular Volume 91 fL (80-97); Mean Platelet Volume 6.9 fL (7.4-10.4); Nucleated Red Blood Cells % 0.1; Platelet Count 181 10^3/uL (150-450); Red Blood Count 3.69 10^6 /uL (3.70-4.87); Red Cell Distribution Width 14 % (10-15); White Blood Count 4.8 10^3/uL (3.5-10.8)
[2022-07-31 07:00] LABS: Calcium 8.4 mg/dL (8.6-10.3); Magnesium 1.5 mg/dL (1.9-2.7); Potassium 3.6 mmol/L (3.5-5.0); eGFR CKD-EPI 100.6 (>60)
[2022-07-31] MEDS ORDERED: Magnesium Sulf 4 GM/100 ML IV 4,000 MG/100 ML BAG IVPB ONE (08:00)
[2022-07-31] MEDS: oxyCODONE SR 20 mg TAB PO SCH ×2 (08:22→21:05)
[2022-07-31] MEDS: Cholecalciferol (VIT D3) 1,000 unit TAB PO SCH (09:32)
[2022-07-31] MEDS: Aspirin EC 81 mg TAB.EC (enteric coated) PO SCH (09:32)
[2022-07-31] MEDS: OSIMERTINIB PO SCH (09:39)
[2022-07-31] MEDS: Silver Sulfadiazine 1% 20 gm TUBE TOPICAL SCH ×2 (09:40→21:14)
[2022-07-31] MEDS: oxyCODONE SR 15 mg TAB PO SCH (14:28)
[2022-07-31] MEDS: Enoxaparin 40 MG/0.4 ML SYR SUBCUT SCH (17:33)
[2022-07-31] MEDS: Senna TAB 8.6 mg TAB PO SCH (21:03)
[2022-08-01] MEDS: NS 0.9% 1000 ml BAG 1,000 ML IV SCH (08:20)
[2022-08-01] MEDS: OSIMERTINIB PO SCH (08:22)
[2022-08-01] MEDS: oxyCODONE SR 20 mg TAB PO SCH (08:23)
[2022-08-01] MEDS: Cholecalciferol (VIT D3) 1,000 unit TAB PO SCH (08:23)
[2022-08-01] MEDS: Aspirin EC 81 mg TAB.EC (enteric coated) PO SCH (08:23)
[2022-08-01] MEDS: Silver Sulfadiazine 1% 20 gm TUBE TOPICAL SCH (08:24)
[2022-08-01 11:26] VITALS: BP 165/79
== END 2022-08-01 13:33 | DRG 193 ==
LOC: EDHOLD 10:05 → ED 10:05 → SUATTDRO 15:13 → MED 07-24 20:40 → SUATTDRO 07-25 16:00
PROVIDERS: ADMIT Internal Medicine; ATTEND Internal Medicine

== ENCOUNTER 2022-08-29 16:42 | Inpatient (IN) ==
[2022-08-29 18:15] LABS: Hematocrit 38 % (35-47); Hemoglobin 12.3 g/dL (12.0-16.0); Mean Corpuscular HGB Conc 32 g/dL (31-36); Mean Corpuscular Hemoglobin 28 pg (27-31); Mean Corpuscular Volume 88 fL (80-97); Mean Platelet Volume 6.8 fL (7.4-10.4); Platelet Count 361 10^3/uL (150-450); Red Blood Count 4.35 10^6 /uL (3.70-4.87); Red Cell Distribution Width 17 % (10-15); White Blood Count 28.8 10^3/uL (3.5-10.8)
[2022-08-29 18:33] LABS: Urine Appearance Clear; Urine Bilirubin Negative (Negative); Urine Blood Negative (Negative); Urine Color Yellow; Urine Glucose Negative (Negative); Urine Ketones Trace (Negative); Urine Nitrite Negative (Negative); Urine Protein 1+(30 mg/dL) (Negative); Urine Specific Gravity 1.018 (1.002-1.030); Urine Urobilinogen Positive (Negative)
[2022-08-29 18:36] LABS: Albumin 3.3 g/dL (3.2-5.2); Albumin/Globulin Ratio 1.1 (1-3); C Reactive Protein 215.64 mg/L (<8.01); Calcium 10.1 mg/dL (8.6-10.3); Creatinine, Serum 0.46 mg/dL (0.51-0.95); Globulin 2.9 g/dL (2-4); Magnesium 1.6 mg/dL (1.9-2.7); Phosphorus 2.9 mg/dL (2.5-5.0); Potassium 4.8 mmol/L (3.5-5.0); Total Bilirubin 0.7 mg/dL (0.2-1.0); Total Protein 6.2 g/dL (6.4-8.9); eGFR CKD-EPI 97.9 (>60)
[2022-08-29 18:37] LABS: ABS Basophils 0.1 10^3/ul (0-0.2); ABS Lymphocytes 0.6 10^3/ul (1.0-4.8); ABS Monocytes 1.7 10^3/ul (0-0.8); ABS Neutrophils 26.4 10^3/ul (1.5-7.7); Dohle Bodies Present; Lymphocyte % 2.2 %; Toxic Granulation 1+
[2022-08-29] MEDS ORDERED: Piperacillin/Tazobac ADVAN 3.375 GM in NS 0.9% 100 ml BAG 100 ML IV ONE (18:38)
[2022-08-29 18:39] LABS: Urine Bacteria Absent (Absent); Urine Red Blood Cell Trace(0-2/hpf) (Absent); Urine Squamous Epithelial Cell Present (Absent); Urine White Blood Cell Trace(0-5/hpf) (Absent)
[2022-08-29] MEDS ORDERED: Haloperidol 5 mg/ml SDV IV/IM 5 MG/ML AMP IV SLOW PU ONE (18:54)
[2022-08-29] MEDS ORDERED: LORazepam 2 mg VIAL 1 ml IV PUSH ONE (18:55)
[2022-08-29] MEDS ORDERED: Lorazepam PYXIS KEY PRN (18:55)
[2022-08-29 19:48] LABS: High Sensitivity Troponin 1 Hr 122 pg/mL (<15)
[2022-08-29] MEDS ORDERED: Iohexol 350 (CONTRAST) 500 ML MDV IV ONE (20:26)
[2022-08-29] MEDS ORDERED: Lactated Ringers 1000 ml BAG 1,000 ML IV SCH ×2 (21:00)
[2022-08-29 22:36] LABS: CO2 Carbon Dioxide 23 mmol/L (22-32); Calcium 8.6 mg/dL (8.6-10.3); Chloride 98 mmol/L (101-111); Sodium 127 mmol/L (135-145)
[2022-08-29 22:42] LABS: Blood Urea Nitrogen 16 mg/dL (6-24); Creatinine, Serum 0.42 mg/dL (0.51-0.95); Glucose 86 mg/dL (70-100); eGFR CKD-EPI 100.1 (>60)
[2022-08-29 22:43] LABS: Anion Gap 6 mmol/L (2-11)
[2022-08-29] MEDS ORDERED: Zosyn per Pharmacy NOTE FOLLOW UP SCH (23:00)
[2022-08-30] MEDS ORDERED: Acetaminophen IV 1 GM/100ML 1,000 MG/100 ML BAG IV ONE (00:26)
[2022-08-30] MEDS: ZOSYN 3.375 GM Q8H per EXTENDED INFUSION IV SCH ×2 (00:40→11:04)
[2022-08-30 01:17] LABS: Urine Osmo 574 mOsm/kg (150-1150)
[2022-08-30] MEDS: Azithromycin 500 mg/250 ml NS 500 MG/250 ML BAG IVPB SCH (03:13)
[2022-08-30 06:02] LABS: Hematocrit 30 % (35-47); Hemoglobin 9.6 g/dL (12.0-16.0); Mean Corpuscular HGB Conc 32 g/dL (31-36); Mean Corpuscular Hemoglobin 28 pg (27-31); Mean Corpuscular Volume 87 fL (80-97); Mean Platelet Volume 6.3 fL (7.4-10.4); Platelet Count 278 10^3/uL (150-450); Red Blood Count 3.44 10^6 /uL (3.70-4.87); Red Cell Distribution Width 17 % (10-15); White Blood Count 23.3 10^3/uL (3.5-10.8)
[2022-08-30 06:20] LABS: ABS Lymphocytes 0.6 10^3/ul (1.0-4.8); ABS Monocytes 1.6 10^3/ul (0-0.8); ABS Neutrophils 21.2 10^3/ul (1.5-7.7); Lymphocyte % 2.4 %
[2022-08-30 06:51] LABS: Calcium 8.7 mg/dL (8.6-10.3); Creatinine, Serum 0.5 mg/dL (0.51-0.95); Potassium 4.4 mmol/L (3.5-5.0); eGFR CKD-EPI 95.9 (>60)
[2022-08-30] MEDS ORDERED: Magnesium Sulf 4 GM/100 ML IV 4,000 MG/100 ML BAG IVPB ONE (07:32)
[2022-08-30 07:53] LABS: Albumin 2.4 g/dL (3.2-5.2); Albumin/Globulin Ratio 1.3 (1-3); Direct Bilirubin 0.3 mg/dL (0.03-0.18); Globulin 1.9 g/dL (2-4); Indirect Bilirubin 0.4 mg/dL (0.3-1.0); Magnesium 1.5 mg/dL (1.9-2.7); Total Bilirubin 0.7 mg/dL (0.2-1.0); Total Protein 4.3 g/dL (6.4-8.9)
[2022-08-30] MEDS: cefTRIAXone 2 gm/50 mL D5W 2 GM/50 ML BAG IV SCH (11:52)
[2022-08-30] MEDS: oxyCODONE SR 10 mg TAB PO SCH (14:46)
[2022-08-30 16:02] LABS: Body Fluid WBC 713 /mcL
[2022-08-30 16:07] LABS: Body Fluid Source Pleural Fluid
[2022-08-30 16:08] LABS: Body Fluid Appearance Cloudy; Body Fluid Color Yellow
[2022-08-30] MEDS ORDERED: OSIMERTINIB MESYLATE 40 MG PO SCH (17:00)
[2022-08-30 17:07] LABS: Hematocrit 37 % (35-47); Hemoglobin 11.3 g/dL (12.0-16.0); Mean Corpuscular HGB Conc 31 g/dL (31-36); Mean Corpuscular Hemoglobin 28 pg (27-31); Mean Corpuscular Volume 90 fL (80-97); Mean Platelet Volume 6.8 fL (7.4-10.4); Platelet Count 306 10^3/uL (150-450); Red Cell Distribution Width 17 % (10-15); White Blood Count 24.5 10^3/uL (3.5-10.8)
[2022-08-30 17:17] LABS: Body Fluid Mono 10 %; Body Fluid NRBC 2; Body Fluid Total Cells Counted 200
[2022-08-30] MEDS ORDERED: OSIMERTINIB MESYLATE 40 MG PO ONE (18:00)
[2022-08-30 18:15] LABS: ABS Lymphocytes 0.6 10^3/ul (1.0-4.8); ABS Monocytes 1.7 10^3/ul (0-0.8); ABS Neutrophils 22.2 10^3/ul (1.5-7.7); Lymphocyte % 2.5 %
[2022-08-30] MEDS: Senna TAB 8.6 mg TAB PO SCH (21:02)
[2022-08-30] MEDS: oxyCODONE SR 20 mg TAB PO SCH (21:03)
[2022-08-31] MEDS: Azithromycin 500 mg/250 ml NS 500 MG/250 ML BAG IVPB SCH (02:06)
[2022-08-31] MEDS ORDERED: Acetaminophen IV 1 GM/100ML 1,000 MG/100 ML BAG IV ONE (04:22)
[2022-08-31 06:07] LABS: ABS Eosinophils 0.1 10^3/ul (0-0.6); ABS Lymphocytes 0.8 10^3/ul (1.0-4.8); ABS Monocytes 1.5 10^3/ul (0-0.8); ABS Neutrophils 16.1 10^3/ul (1.5-7.7); Eosinophil % 0.3 %; Hematocrit 30 % (35-47); Hemoglobin 9.9 g/dL (12.0-16.0); Lymphocyte % 4.3 %; Mean Corpuscular HGB Conc 33 g/dL (31-36); Mean Corpuscular Hemoglobin 29 pg (27-31); Mean Corpuscular Volume 88 fL (80-97); Mean Platelet Volume 6.6 fL (7.4-10.4); Platelet Count 292 10^3/uL (150-450); Red Blood Count 3.45 10^6 /uL (3.70-4.87); Red Cell Distribution Width 16 % (10-15); White Blood Count 18.5 10^3/uL (3.5-10.8)
[2022-08-31 06:25] LABS: Albumin 2.4 g/dL (3.2-5.2); Albumin/Globulin Ratio 1.1 (1-3); C Reactive Protein 178.84 mg/L (<8.01); Calcium 8.8 mg/dL (8.6-10.3); Creatinine, Serum 0.36 mg/dL (0.51-0.95); Globulin 2.2 g/dL (2-4); Magnesium 1.9 mg/dL (1.9-2.7); Potassium 4.4 mmol/L (3.5-5.0); Total Bilirubin 0.5 mg/dL (0.2-1.0); Total Protein 4.6 g/dL (6.4-8.9); eGFR CKD-EPI 103.8 (>60)
[2022-08-31] MEDS ORDERED: NS 0.9% 1000 ml BAG 1,000 ML IV SCH ×2 (07:30→15:45)
[2022-08-31] MEDS ORDERED: NS 0.9% 250 ml 250 ML IV SCH (08:00)
[2022-08-31 08:25] LABS: Osmolality Serum 276 mOsm/kg (275-295)
[2022-08-31] MEDS: oxyCODONE SR 20 mg TAB PO SCH ×2 (09:59→20:22)
[2022-08-31] MEDS: cefTRIAXone 2 gm/50 mL D5W 2 GM/50 ML BAG IV SCH (10:00)
[2022-08-31] MEDS: OSIMERTINIB MESYLATE 40 MG PO SCH (10:01)
[2022-08-31 12:35] LABS: Urine Osmo 655 mOsm/kg (150-1150)
[2022-08-31 16:24] LABS: Calcium 9.2 mg/dL (8.6-10.3); Creatinine, Serum 0.43 mg/dL (0.51-0.95); Potassium 4.3 mmol/L (3.5-5.0); eGFR CKD-EPI 99.5 (>60)
[2022-08-31] MEDS: oxyCODONE SR 10 mg TAB PO SCH (17:15)
[2022-08-31] MEDS: Magnesium Hydroxide LIQ 30 ML UDC PO PRN (17:15)
[2022-08-31] MEDS: Cholecalciferol (VIT D3) 1,000 unit TAB PO SCH (17:16)
[2022-08-31] MEDS: Aspirin EC 81 mg TAB.EC (enteric coated) PO SCH (17:16)
[2022-08-31] MEDS: Enoxaparin 40 MG/0.4 ML SYR SUBCUT SCH (17:22)
[2022-08-31] MEDS ORDERED: Gadoteridol (CONTRAST) 279.3 MG/ML 10 ML IV ONE (17:32)
[2022-08-31] MEDS: Senna TAB 8.6 mg TAB PO SCH (20:23)
[2022-09-01] MEDS ORDERED: Acetaminophen IV 1 GM/100ML 1,000 MG/100 ML BAG IV ONE (01:31)
[2022-09-01] MEDS: Azithromycin 500 mg/250 ml NS 500 MG/250 ML BAG IVPB SCH (01:59)
[2022-09-01] MEDS ORDERED: Al Hydrox/Mg Hydrox/Simet LIQ 30 ML UDC PO PRN (02:42)
[2022-09-01 06:15] LABS: ABS Monocytes 1.5 10^3/ul (0-0.8); ABS Neutrophils 14.6 10^3/ul (1.5-7.7); Eosinophil % 0.1 %; Hematocrit 31 % (35-47); Hemoglobin 9.8 g/dL (12.0-16.0); Lymphocyte % 5.7 %; Mean Corpuscular HGB Conc 32 g/dL (31-36); Mean Corpuscular Hemoglobin 28 pg (27-31); Mean Corpuscular Volume 88 fL (80-97); Mean Platelet Volume 6.6 fL (7.4-10.4); Platelet Count 326 10^3/uL (150-450); Red Blood Count 3.53 10^6 /uL (3.70-4.87); Red Cell Distribution Width 17 % (10-15); White Blood Count 17.2 10^3/uL (3.5-10.8)
[2022-09-01 06:31] LABS: Calcium 8.8 mg/dL (8.6-10.3); Creatinine, Serum 0.47 mg/dL (0.51-0.95); Magnesium 1.8 mg/dL (1.9-2.7); Potassium 4.5 mmol/L (3.5-5.0); eGFR CKD-EPI 97.4 (>60)
[2022-09-01] MEDS ORDERED: BIOTIN 2500 MCG PO SCH (09:00)
[2022-09-01] MEDS: oxyCODONE SR 20 mg TAB PO SCH ×2 (09:38→22:15)
[2022-09-01] MEDS: cefTRIAXone 2 gm/50 mL D5W 2 GM/50 ML BAG IV SCH (09:38)
[2022-09-01] MEDS: Aspirin EC 81 mg TAB.EC (enteric coated) PO SCH (09:39)
[2022-09-01] MEDS: Cholecalciferol (VIT D3) 1,000 unit TAB PO SCH (09:39)
[2022-09-01] MEDS: OSIMERTINIB MESYLATE 40 MG PO SCH (09:40)
[2022-09-01] MEDS: Magnesium Hydroxide LIQ 30 ML UDC PO PRN (09:41)
[2022-09-01] MEDS ORDERED: Magnesium Sulfate IV 1GM/100ML 1 GM/100 ML BAG IV ONE (10:09)
[2022-09-01 13:27] LABS: Lactate Dehydrogenase, BF 563 U/L
[2022-09-01] MEDS: oxyCODONE SR 10 mg TAB PO SCH (15:05)
[2022-09-01] MEDS: Enoxaparin 40 MG/0.4 ML SYR SUBCUT SCH (15:08)
[2022-09-01 15:44] LABS: Fluid Type, Protein, Total PLEURAL; Total Protein, BF 3.1 g/dL
[2022-09-01 15:48] LABS: Albumin, BF 1.9 g/dL; Fluid Type, Albumin PLEURAL
[2022-09-01] MEDS: Senna TAB 8.6 mg TAB PO SCH (22:15)
[2022-09-02] MEDS: Azithromycin 500 mg/250 ml NS 500 MG/250 ML BAG IVPB SCH (01:54)
[2022-09-02] MEDS: oxyCODONE SR 20 mg TAB PO SCH ×2 (09:41→20:21)
[2022-09-02] MEDS: Aspirin EC 81 mg TAB.EC (enteric coated) PO SCH (09:42)
[2022-09-02] MEDS: Cholecalciferol (VIT D3) 1,000 unit TAB PO SCH (09:42)
[2022-09-02] MEDS: cefTRIAXone 2 gm/50 mL D5W 2 GM/50 ML BAG IV SCH (09:42)
[2022-09-02] MEDS: OSIMERTINIB MESYLATE 40 MG PO SCH (14:25)
[2022-09-02] MEDS: oxyCODONE SR 10 mg TAB PO SCH (14:26)
[2022-09-02] MEDS: Lidocaine PATCH 5% PATCH TRANSDERM SCH (14:28)
[2022-09-02] MEDS ORDERED: Lorazepam PYXIS KEY PRN (16:27)
[2022-09-02] MEDS ORDERED: LORazepam 2 mg VIAL 1 ml IV PUSH PRN (16:27)
[2022-09-02] MEDS ORDERED: Magnesium Sulfate 2 gm BAG 2 GM/50 ML BAG IVPB ONE (16:33)
[2022-09-02] MEDS: Enoxaparin 40 MG/0.4 ML SYR SUBCUT SCH (18:24)
[2022-09-02] MEDS: Senna TAB 8.6 mg TAB PO SCH (20:21)
[2022-09-03] MEDS: Lidocaine PATCH 5% PATCH TRANSDERM SCH ×2 (09:07→09:26)
[2022-09-03] MEDS: oxyCODONE SR 20 mg TAB PO SCH ×3 (09:08→21:00)
[2022-09-03] MEDS: Aspirin EC 81 mg TAB.EC (enteric coated) PO SCH (09:10)
[2022-09-03] MEDS: Cholecalciferol (VIT D3) 1,000 unit TAB PO SCH (09:10)
[2022-09-03] MEDS: Magnesium Hydroxide LIQ 30 ML UDC PO PRN (09:10)
[2022-09-03] MEDS: cefTRIAXone 2 gm/50 mL D5W 2 GM/50 ML BAG IV SCH (09:11)
[2022-09-03] MEDS: OSIMERTINIB MESYLATE 40 MG PO SCH (09:26)
[2022-09-03 10:11] LABS: Calcium 9.5 mg/dL (8.6-10.3); Creatinine, Serum 0.76 mg/dL (0.51-0.95); Magnesium 2.7 mg/dL (1.9-2.7); eGFR CKD-EPI 80.2 (>60)
[2022-09-03] MEDS ORDERED: NS 0.9% 1000 ml BAG 1,000 ML IV ONE (10:42)
[2022-09-03] MEDS ORDERED: Dextrose 50% Syringe 50 ml 25 GM/50 ML SYRINGE IV PUSH ONE (10:43)
[2022-09-03] MEDS ORDERED: SODIUM ZIRCONIUM CYCLOSILICATE 5 GM PACKET PO ONE (10:44)
[2022-09-03 11:51] LABS: Calcium 9.1 mg/dL (8.6-10.3); Creatinine, Serum 0.67 mg/dL (0.51-0.95); Magnesium 2.5 mg/dL (1.9-2.7); eGFR CKD-EPI 89.4 (>60)
[2022-09-03 11:53] LABS: Potassium 5.6 mmol/L (3.5-5.0)
[2022-09-03 12:43] LABS: Rapid COVID-19 Molecular Undetected (Undetected)
[2022-09-03 14:02] LABS: C Reactive Protein 137.4 mg/L (<8.01)
[2022-09-03] MEDS: oxyCODONE SR 10 mg TAB PO SCH (14:36)
[2022-09-03] MEDS: Enoxaparin 40 MG/0.4 ML SYR SUBCUT SCH (16:47)
[2022-09-03 17:14] LABS: Calcium 8.8 mg/dL (8.6-10.3); Creatinine, Serum 0.61 mg/dL (0.51-0.95); Magnesium 2.4 mg/dL (1.9-2.7); eGFR CKD-EPI 91.5 (>60)
[2022-09-03 17:27] LABS: Potassium 5.4 mmol/L (3.5-5.0)
[2022-09-03] MEDS: Senna TAB 8.6 mg TAB PO SCH ×2 (20:53→20:54)
[2022-09-04] MEDS: Senna TAB 8.6 mg TAB PO SCH ×2 (02:11)
[2022-09-04 06:44] LABS: Hematocrit 35 % (35-47); Hemoglobin 10.8 g/dL (12.0-16.0); Mean Corpuscular HGB Conc 31 g/dL (31-36); Mean Corpuscular Hemoglobin 28 pg (27-31); Mean Corpuscular Volume 90 fL (80-97); Mean Platelet Volume 7.3 fL (7.4-10.4); Platelet Count 321 10^3/uL (150-450); Red Blood Count 3.85 10^6 /uL (3.70-4.87); Red Cell Distribution Width 17 % (10-15); White Blood Count 18.2 10^3/uL (3.5-10.8)
[2022-09-04 06:56] LABS: Albumin 2.7 g/dL (3.2-5.2); Albumin/Globulin Ratio 1.1 (1-3); Calcium 9.2 mg/dL (8.6-10.3); Creatinine, Serum 0.55 mg/dL (0.51-0.95); Globulin 2.4 g/dL (2-4); Potassium 4.8 mmol/L (3.5-5.0); Total Bilirubin 0.3 mg/dL (0.2-1.0); Total Protein 5.1 g/dL (6.4-8.9); eGFR CKD-EPI 93.8 (>60)
[2022-09-04] MEDS ORDERED: Polyethylene Glycol 3350 17 GM PACKET PO SCH (08:00)
[2022-09-04] MEDS: oxyCODONE SR 20 mg TAB PO SCH (08:07)
[2022-09-04] MEDS: Cholecalciferol (VIT D3) 1,000 unit TAB PO SCH (08:12)
[2022-09-04] MEDS: Aspirin EC 81 mg TAB.EC (enteric coated) PO SCH (08:12)
[2022-09-04] MEDS: Lidocaine PATCH 5% PATCH TRANSDERM SCH (08:21)
[2022-09-04] MEDS: cefTRIAXone 2 gm/50 mL D5W 2 GM/50 ML BAG IV SCH (08:22)
[2022-09-04] MEDS ORDERED: Lactated Ringers 1000 ml BAG 1,000 ML IV ONE (08:57)
[2022-09-04] MEDS: OSIMERTINIB MESYLATE 40 MG PO SCH (10:46)
[2022-09-04 16:23] VITALS: BP 130/65
== END 2022-09-04 13:30 | DRG 871 ==
LOC: ED 16:42 → EDHOLD 16:42 → SUATTDRO 22:25 → MED 08-30 01:19 → MEDTELE 08-30 05:04 → SUATTDRO 08-30 10:20
PROVIDERS: ADMIT Internal Medicine; ATTEND Family Medicine